=== PATIENT | male | born 1980 | race African-American/Black ===

== ENCOUNTER 2019-07-16 18:46 | Emergency (ER) | payer SELFPAY ==
[~2019-07-16] VITALS: Ht 182.9 cm; Wt 90.7 kg
--- NOTE | 2019-07-16 18:58 | Emergency Room Report ---
History of Present Illness General Chief Complaint: Dizziness Source: Patient Present Illness HPI Disclaimer: Please note that this report is being documented using DRAGON technology. This can lead to erroneous entry secondary to incorrect interpretation by the dictating instrument. HPI: 38-year-old male with no reported medical history presents for evaluation of chest pain and bizarre behavior. He was scheduled to meet his family and friends for dinner. He when he arrived he was agitated, tremulous, refusing to speak to anyone. He was brought to the emergency department for evaluation. He is complaining of headache, confusion, agitation, palpitations, chest pain. Denies abdominal pain, nausea, vomiting, recent fever or chills. He admits to smoking hookah just before symptoms onset. He is smoked hookah before and states he packed it himself without adding any other illicit substances. Denies alcohol use or other ingestion. PMH: Denies PSH: Denies Allergies: Denies Social Hx: Smokes hookah, denies alcohol or drug use Allergies: Coded Allergies: No Known Allergies (Unverified , 07/16/19) Nursing Documentation-PMH Past Medical History: No Stated History Review of Systems All Other Systems: negative except mentioned in HPI Physical Exam General: Awake and alert, anxious appearing, tremulous HEENT: NC/AT. EOMI. sclera injected bilaterally. No purulence. Dry mucous membranes. Neck: Supple, trachea midline Chest Wall: No tenderness, no deformity Cardiovascular: Tachycardic. S1 and S2 normal. No murmur appreciated Resp: Mild tachypnea. Normal work of breathing.. No cough, wheezing or crackles appreciated Abdomen: Abdomen is soft, nondistended. Nontender Skin: Intact. No abrasions, laceration or rash over the exposed skin MSK: Normal tone and bulk. Moving all extremities. No obvious deformity. Neuro: Awake and alert. Mentating appropriately. Answering questions appropriately. Appears very anxious and tremulous in all extremities. Medical Decision Making Diagnostic Impression: Primary Impression: Use of cannabinoid edibles ER Course 38-year-old male presents for evaluation of palpitations, anxiety and tremors after smoking hookah. Differential includes was not limited to ACS, arrhythmia , infection, electrolyte abnormality, toxic ingestion, anxiety, panic attack. Will obtain EKG, broad labs including cardiac enzymes, tox panel. We will start IV fluids and treat with benzodiazepines for agitation. Laboratory Tests Test 1/5/20 19:30 07/16/19 21:50 White Blood Count 7.7 K/UL (4.8-10.8) Red Blood Count 5.88 M/UL (4.70-6.10) Hemoglobin 17.8 G/DL (14.2-18.0) Hematocrit 51.3 % (42.0-52.0) Mean Corpuscular Volume 87 FL (80-99) Mean Corpuscular Hemoglobin 30.2 PG (27.0-31.0) Mean Corpuscular Hemoglobin Concent 34.6 G/DL (32.0-36.0) Red Cell Distribution Width 10.1 % (11.6-14.8) L Platelet Count 188 K/UL (150-450) Mean Platelet Volume 7.1 FL (6.5-10.1) Neutrophils (%) (Auto) 41.9 % (45.0-75.0) L Lymphocytes (%) (Auto) 44.0 % (20.0-45.0) Monocytes (%) (Auto) 10.1 % (1.0-10.0) H Eosinophils (%) (Auto) 2.7 % (0.0-3.0) Basophils (%) (Auto) 1.3 % (0.0-2.0) Sodium Level 142 MMOL/L (136-145) Potassium Level 4.1 MMOL/L (3.5-5.1) Chloride Level 105 MMOL/L (98-107) Carbon Dioxide Level 23 MMOL/L (21-32) Anion Gap 14 mmol/L (5-15) Blood Urea Nitrogen 20 mg/dL (7-18) H Creatinine 1.0 MG/DL (0.55-1.30) Estimate Glomerular Filtration Rate > 60 mL/min (>60) Glucose Level 185 MG/DL (74-106) H Calcium Level 8.9 MG/DL (8.5-10.1) Total Bilirubin 0.4 MG/DL (0.2-1.0) Aspartate Amino Transferase (AST) 23 U/L (15-37) Alanine Aminotransferase (ALT) 36 U/L (12-78) Alkaline Phosphatase 58 U/L (46-116) Troponin I 0.000 ng/mL (0.000-0.056) Total Protein 7.7 G/DL (6.4-8.2) Albumin 4.0 G/DL (3.4-5.0) Globulin 3.7 g/dL Albumin/Globulin Ratio 1.1 (1.0-2.7) Salicylates Level < 0.2 ug/mL (2.8-20) L Acetaminophen Level < 2 MCG/ML (10-30) L Serum Alcohol < 3 mg/dL Urine Opiates Screen Negative (NEGATIVE) Urine Barbiturates Screen Negative (NEGATIVE) Phencyclidine (PCP) Screen Negative (NEGATIVE) Urine Amphetamines Screen Negative (NEGATIVE) Urine Benzodiazepines Screen Negative (NEGATIVE) Urine Cocaine Screen Negative (NEGATIVE) Urine Marijuana (THC) Screen Positive (NEGATIVE) H EKG Diagnostic Results EKG Time: 19:18 Rate: tachycardiac Rhythm: NSR ST Segments: no acute changes Other Impression Sinus tachycardia, normal axis, normal intervals, no ST segment changes. Rhythm Strip Diag. Results Rhythm Strip Time: 19:18 EP Interpretation: yes Rate: 110s Rhythm: no PVC's, no ectopy Chest X-Ray Diagnostic Results Chest X-Ray Diagnostic Results : Chest X-Ray Ordered: Yes # of Views/Limited/Complete: 1 View Indication: Chest Pain EP Interpretation: Yes Interpretation: no consolidation, no effusion, no pneumothorax, no acute cardiopulmonary disease Impression: No acute disease Electronically Signed by: Electronically signed by Dr. Carmelo Weir Reevaluation Time: 22:19 Reevaluation Impression EKG and chest x-ray unremarkable. Heart rate improved after receiving benzodiazepines and fluids. Patient is now coherent and admits to taking THC edibles earlier today for the first time. This was an accidental ingestion according the patient as he did not feel there was THC in the brownies he was eating. No acute distress and ambulating in the emergency department difficulty. Labs have returned within normal limits aside from testing positive for THC. Patient is stable for outpatient follow-up. He will follow- up with PMD and return to the emergency department new or worsening symptoms. His cousin is here to take him home. Understands and agrees with this treatment plan. Will discharge home. Disposition: HOME, SELF-CARE Condition: Stable Carmelo Weir MD Jul 16, 2019 18:58
[2019-07-16] MEDS ORDERED: LORazepam Inj 2mg/ml 1ml IV ONE (19:00)
--- NOTE | 2019-07-16 19:00 | NUR ---
ED Nurse Note: PT BROUGHT IN BY FRIEND IN WHEELCHAIR. PT C/O DIZZINESS AND WEAKNESS. PT ALSO STATES CP. PT APPEARS TO BE IRRITABLE. PT ADMITTED TO SMOKING HOOKAH. PT ON MONITOR, HR 120. ERMD AT BEDSIDE.
--- NOTE | 2019-07-16 19:15 | NUR ---
ED Nurse Note: PT IS REFUSING ATIVAN. ERMD AWARE. PT IS SLEEPING, VSS, NAD. FRIEND AT BEDSIDE.
--- NOTE | 2019-07-16 19:20 | NUR ---
ED Nurse Note: XR AT BEDSIDE.
[2019-07-16 20:00] VITALS: BP 117/79
[2019-07-16 20:38] LABS: BASOPHILS % (AUTO) 1.3 % (0.0-2.0); EOSINOPHILS % (AUTO) 2.7 % (0.0-3.0); HEMATOCRIT 51.3 % (42.0-52.0); HEMOGLOBIN 17.8 G/DL (14.2-18.0); MEAN CORPUSCULAR VOLUME 87 FL (80-99); MONOCYTES % (AUTO) 10.1 % (1.0-10.0); NEUTROPHILS % (AUTO) 41.9 % (45.0-75.0); PLATELET COUNT 188 K/UL (150-450); RED BLOOD COUNT 5.88 M/UL (4.70-6.10); RED CELL DISTRIBUTION WIDTH 10.1 % (11.6-14.8); WHITE BLOOD COUNT 7.7 K/UL (4.8-10.8)
[2019-07-16 20:47] LABS: ANION GAP 14 mmol/L (5-15); BLOOD UREA NITROGEN 20 mg/dL (7-18); CALCIUM 8.9 MG/DL (8.5-10.1); CARBON DIOXIDE 23 MMOL/L (21-32); CHLORIDE 105 MMOL/L (98-107); POTASSIUM 4.1 MMOL/L (3.5-5.1); SODIUM 142 MMOL/L (136-145)
[2019-07-16 20:54] LABS: ALANINE AMINOTRANSFERASE 36 U/L (12-78); ALBUMIN/GLOBULIN RATIO 1.1 (1.0-2.7); ALKALINE PHOSPHATASE 58 U/L (46-116); ASPARTATE AMINO TRANSFERASE 23 U/L (15-37); BILIRUBIN,TOTAL 0.4 MG/DL (0.2-1.0)
--- NOTE | 2019-07-16 21:30 | NUR ---
ED Nurse Note: URINE COLLECTED AND SENT TO LAB.
[2019-07-16 22:17] VITALS: BP 103/68
[2019-07-16 22:20] VITALS: BP 103/68
--- NOTE | 2019-07-16 22:20 | NUR ---
ER DISCHARGE NOTE: Patient is cleared to be discharged per ERMD, pt is aox4, on room air, with stable vital signs. pt was given dc instructions, pt was able to verbalize understanding, pt id band and iv site removed without complications. pt is able to ambulate with steady gait. pt took all belongings accompanied by friend.
--- NOTE | 2019-07-17 18:31 | Diagnostic Imaging Report ---
. Indication: Chest pain Technique: One view of the chest Comparison: none Findings: Lungs and pleural spaces are clear. Heart size is normal. Impression: No acute process
== END 2019-07-16 22:20 | disposition home or self-care (01) ==
LOC: EMR 22:00
DX: F12.90 Cannabis use, unspecified, uncomplicated (principal); R07.9 Chest pain, unspecified; R00.0 Tachycardia, unspecified
CPT/HCPCS: 36415; 71045; 80053; 80307; 84484; 85025; 93005; 96360; 99284; G0480